=== PATIENT | female | born 1960 | race Caucasian/White ===

== ENCOUNTER 2017-12-19 05:30 | Emergency (ER) | payer OTHER ==
[~2017-12-19] VITALS: Ht 170.2 cm; Wt 82.6 kg
--- NOTE | 2017-12-19 05:37 | NUR ---
PT BBRA FROM HOME C/C OF "RIGHT HIP PAIN S/P TRYING TO GET OUT OF BED". PT IS AAOX4. -KO, -TRAUMA. -N/V. SKIN WNL. PT ABLE TO MOVE BOTH LOWER EXTREMITIES BUT STATES RIGHT HIP PAIN WHEN MOVING. PAIN 8/10 ON RIGHT HIP. STRONG AND EQUAL BILATERAL PEDAL PULSES. BILATERAL SENSATION EQUAL AND PRESENT. PT SAFETY AND COMFORT MEASURES IN PLACE. PT PLACED ON SPEED BELT SANDER AND POX. VSS. AWAITING MD FOR EVAL.
[2017-12-19] MEDS ORDERED: PROPOFOL 20 ML IV ONE (06:30)
--- NOTE | 2017-12-19 06:55 | NUR ---
CLOSED HIP REDUCTION STARTED AT 0649 WITH MD KATE AND RT ANTOINETTE BEDSIDE. TOTAL OF 150MG OF PROPOFOL GIVEN PER MD SOMMER ORDERS. 50MG OF PROP WASTED. PT'S VITALS STABLE THROUGHOUT CONSCIOUS SEDATION. PT AAOX4 AT 0654. WILL CONTINUE TO MONITOR PT.
[2017-12-19 06:56] VITALS: BP 149/89
[2017-12-19] MEDS ORDERED: PROPOFOL 200 MG/20 ML VIAL IV ONE (07:00)
--- NOTE | 2017-12-19 07:00 | NUR ---
HIP REDUCTION UNSUCCESSFUL PER MD. KATE. PT WILL BE TRANSFERRED TO [facility]. WILL CONTINUE TO MONITOR PT.
--- NOTE | 2017-12-19 07:09 | NUR ---
[facility] CALLED.
--- NOTE | 2017-12-19 07:24 | NUR ---
REPORT GIVEN TO DELANEY MCMULLEN FOR CONT OF CARE
[2017-12-19] MEDS ORDERED: MORPHINE SULFATE INJ 2 MG/ML DISP.SYRIN IV ONE ×2 (07:30→09:00)
[2017-12-19] MEDS ORDERED: MORPHINE SULFATE INJ 4 MG/ML DISP.SYRIN ONE ×2 (07:31→08:32)
--- NOTE | 2017-12-19 08:12 | NUR ---
[facility] called with transfer information: pt will be going to [facility] Accepting is Dr. Wheeler Accepting ortho is Dr. Burnett Number for report is [phone]
--- NOTE | 2017-12-19 08:35 | NUR ---
Report given to Martha MCMULLEN for continuity of care at [facility]
== END 2017-12-19 08:37 | disposition short-term general hospital (02) ==
LOC: ER 05:32
DX: T84.020A Dislocation of internal right hip prosthesis, initial encounter (principal); I10 Essential (primary) hypertension; Z96.641 Presence of right artificial hip joint; X58.XXXA Exposure to other specified factors, initial encounter; Y93.89 Activity, other specified; Y92.89 Other specified places as the place of occurrence of the external cause; Y99.8 Other external cause status
CPT/HCPCS: 73501; 73502; A4606; J2270; J2704; J7030; Z7610